=== PATIENT | male | born 1965 | race Caucasian/White ===

== ENCOUNTER 2016-12-25 08:56 | Emergency (ER) | payer OTHER ==
[~2016-12-25] VITALS: Ht 180.3 cm; Wt 74.8 kg
[~2016-12-25 08:56] MED LIST: ANAPROX DS550 MG PO; KEFLEX500 MG PO; MOTRIN800 MG PO; NAPROSYN500 MG PO; NEXIUM40 MG PO; PREDNISONE50 MG PO; ULTRAM50 MG PO
[2016-12-25] MEDS ORDERED: NAPROSYN500 MG PO (10:54)
[2016-12-25] MEDS ORDERED: CYCLOBENZAPRINE10 MG PO (10:54)
== END 2016-12-25 10:58 | disposition home or self-care (01) ==
LOC: ED 08:56
DX: S29.012A Strain of muscle and tendon of back wall of thorax, initial encounter (principal); Z90.49 Acquired absence of other specified parts of digestive tract; Z88.0 Allergy status to penicillin; Z79.899 Other long term (current) drug therapy; X58.XXXA Exposure to other specified factors, initial encounter; Y93.89 Activity, other specified; Y92.89 Other specified places as the place of occurrence of the external cause; Y99.9 Unspecified external cause status